=== PATIENT | male | born 1960 | race Caucasian/White ===

== ENCOUNTER 2020-07-25 13:48 | Inpatient (IN) | payer OTHER ==
[~2020-07-25] VITALS: Ht 180.3 cm; Wt 128.0 kg
[2020-07-25 20:34] VITALS: BP 126/70
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
[2020-07-26 12:45] LABS: INR 1.92; PROTIME 20.3 Seconds (9.3-11.4)
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
[2020-07-26 14:34] LABS: HEMATOCRIT 38.3 % (42.0-52.0); HEMOGLOBIN 12.8 gm/dL (14.0-18.0); MCH 29.9 pg (26.0-34.0); MCHC 33.4 g/dL (28.0-37.0); MCV 89.4 fL (80.0-100.0); RBC 4.28 mil/uL (4.50-6.00); RDW 14.4 % (10.5-14.5); WBC 5.2 thou/uL (4.0-11.0)
[2020-07-26 14:42] LABS: CALCIUM 9.6 mg/dL (8.5-10.1); CREATININE 1.5 mg/dL (0.7-1.3); MAGNESIUM 1.9 mg/dL (1.8-2.4); POTASSIUM 4.3 mmol/L (3.5-5.1)
[2020-07-26 14:44] VITALS: BP 133/81
[2020-07-26 19:46] VITALS: BP 133/95
[2020-07-26 20:55] VITALS: BP 133/95
--- NOTE | 2020-07-26 21:00 | NUR ---
PT UP WALKING AROUND WITH WALKER AND SITTING WITH OTHER PEERS AND WANTING TO TALK TO THEM. PT DID TAKE MEDS WHOLE WITH WATER. 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 PT HANDS AND FEET SEEM PUFFY IN NATURE. PT WANTING TO HAVE A SNACK.
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
[2020-07-26] MEDS ORDERED: ALLOPURINOL 10100 M3 PO (22:42)
[2020-07-26] MEDS ORDERED: NORVASC5 MG PO (22:44)
[2020-07-26] MEDS ORDERED: PROTONIX40 M4 PO (22:45)
[2020-07-26] MEDS ORDERED: TOPROL XL25 MG PO (22:45)
[2020-07-26] MEDS ORDERED: JANTOVEN5 MG PO (22:48)
--- NOTE | 2020-07-27 00:01 | NUR ---
PT REFUSED WARFARIN STATED HE HAD IT ALREADY.
--- NOTE | 2020-07-27 01:00 | NUR ---
PT UP OUT OF HIS ROOM AND WANTED MEDICATION. PT WENT BACK TO ROOM. PT USING WALKER FAITHFULLY.
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
--- NOTE | 2020-07-27 01:50 | NUR ---
WENT TO ROOM WITH ANOTHER NURSE LOCO AND ITEMS WAS TAKEN OUT OF HIS ROOM. PT HAD HIS FEET IN THE WHEELCHAIR SPOKES. PT WAS TOLD THAT HE CAN'T BARRACADE THE DOOR. PT WAS OFFERED ICE CREAM WITH LORAZEPAM O.5MG CRUSHED IN IT. PT DID TAKE ICE CREAM AND EAT 50%. PT STATED HE WAS STILL SI AND WANTED TO GET SHOT IN THE BED. PT ALSO ADMITED TO FEELING HOMICIDAL ALSO. HE SAID THAT HE WOULD LIVE FOR HIS SISTER. PT WAS REASSURED THAT HE WAS IN A SAFE PLACE AND HE DIDN'T NEED TO BARRACADE THE DOOR. NOTICED HIS PHONE BOOK WAS TUCKED IN HIS LEFT SOCK, TOOK OUT AND PUT ON WINDOW LEDGE. PT ALSO HAD URINATED IN THE WATER PITCHER. GAVE PT WATER EARLIER AND HE HAD SPILLED IT ON THE BED BY HIS FEET. THIS VICE PRESIDENT PHARMACY CLEANED UP THE FLOOR WHERE IT WAS WET. GAVE WALKER BACK TO PT. BED ALARM IS ACTIVATED. PT DID SAY THANK YOU BEFORE LEAVING THE ROOM.
[2020-07-27 09:30] VITALS: BP 140/91
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
[2020-07-27 15:20] LABS: INR 1.52; PROTIME 16.2 Seconds (9.3-11.4)
[2020-07-27 16:51] VITALS: BP 140/91
--- NOTE | 2020-07-27 17:39 | NUR ---
Assumed pt care at 0700. pt was oriented to self. Assessments completed, vss. pt took meds whole, no difficulty noted. ambulates with a walker. Denies si/hi. denies pain at this time. Refused to take his 9am meds. at 1045 AM meds were administered. SALINE LOCK was inserted at [address] PT TOLERATED WELL. Flushed with NORMAL SALINE 10ML. PT TOLERATED WELL. pt was transported via w/c accompanied by Dr hodgson for CT scan at 1500. AT this time pt is ambulating around the hallway with his walker. WILL continue to monitor pt.
[2020-07-27 19:45] VITALS: BP 83/61
[2020-07-27 20:30] VITALS: BP 83/61
--- NOTE | 2020-07-27 20:37 | NUR ---
PT SITTING OUT IN DINING ROOM WATCHING BASEBALL. PT STATED HE HAS SOME PAIN TO RT SIDE TOWARDS THE BACK. MENTIONED IT COULD BE GAS, PT HAS ACTIVE BOWEL SOUNDS IN THE RUQ, PT DENIES THIS. PT STATED IT FEELS LIKE SOMEONE SQUEEZED HIM THERE ON THE RT SIDE. ADM TYLENOL 325MG 2 TABS PO FOR PAIN TO RT SIDE. PT ALSO TOOK SCHEDUALED MEDICATION, PT LOOKED IN CUP AND SAID DO I TAKE ALL OF THESE, THIS ROUGH RICE TENDER SAID YES. PT TOOK MEDS WITH WATER.
--- NOTE | 2020-07-27 21:00 | NUR ---
GAVE PT A WARM MOIST PACK FOR RT SIDE, PT WANTED IT POSITIONED TOWARDS THE RT MID SIDE REGION.
[2020-07-28 09:56] VITALS: BP 121/76
[2020-07-28 10:34] VITALS: BP 121/76
--- NOTE | 2020-07-28 13:28 | NUR ---
ASSUMED CARE AT 0700 THIS MORNING. PT. COMPLAINING OF PAIN TO HIS RIGHT SIDE. WHILE ASSESSING PT. FOR THIS HE STATED HE HAS NOT HAD ANY BOWEL MOVEMENTS FOR A COUPLE OF DAYS. HE WAS GIVEN TYLENOL FOR THE PAIN. HE STATED IT HELPED SOME. HE WENT TO HIS ROOM AND STATED HE HAD A BOWEL MOVEMENT. HE DENIED THIS DID NOT HELP HIS PAIN IN HIS SIDE. DR. JUAREZ WAS NOTIFIED OF THIS AND TREATMENTS ATTEMPTED ON HIM. STATED HE WOULD COME UP THIS AFTERNOON AND ASSESS HIM. DR. MCCLAIN ALSO NOTIFIED OF THIS INFORMATION. HE OTHERWISE WAS FEELING "OK". HE TOOK HIS MEDICAITONS WITHOUT PROBLEMS NOTED.
[2020-07-28 15:10] LABS: INR 1.43; PROTIME 15.3 Seconds (9.3-11.4)
--- NOTE | 2020-07-28 17:57 | NUR ---
CHEYANNE and Dr. Leal had a family meeting with the Pt's sister/ DPOA, Zoey Pan [phone]. Elvis provide information on the Pt's catscan. Pt dx with normal pressure hydrocephalus. Elvis provided education on the dx and information on treatment. Zoey was informed once Pt's mental health is stable [facility] will attempt to transfer Pt to [facility] for treament. If [facility] denies, Pt will be sent back to the custodial. At that time Dr. Kaur, Pt's PCP, will work on getting Pt into a hospital for treatment. Zoey seemed okay with the information. CHEYANNE will continue to folloe
[2020-07-28 18:20] LABS: HEMOGLOBIN 11.8 gm/dL (14.0-18.0); MCH 29.9 pg (26.0-34.0); MCHC 33.6 g/dL (28.0-37.0); RBC 3.94 mil/uL (4.50-6.00); RDW 14.1 % (10.5-14.5); WBC 4.8 thou/uL (4.0-11.0)
[2020-07-28 18:36] LABS: CALCIUM 9.3 mg/dL (8.5-10.1); CREATININE 1.7 mg/dL (0.7-1.3); POTASSIUM 4.4 mmol/L (3.5-5.1)
[2020-07-28 19:39] VITALS: BP 144/95
[2020-07-28 22:31] VITALS: BP 144/95
--- NOTE | 2020-07-29 01:33 | NUR ---
Assumed care on 07/28/20 @ 1900, seated in the day room, watching TV. Denies SI at this time. Allowed assessment, HRRR, Lungs CTA bilat. Active bowel sounds noted. took his meds whole with water. Retired to bed after medication administration. This nurse helped patient call his family, from the numbers that he had in a telephone book. One number did not have a voice mail set up, and the other had a voice mail, so the patient left a message. Noted to be pleasant, cooperative and invested in family members. retired to bed @ HS, in bed with eyes closed, respirations even and unlabored. Will continue to monitor as per unit protocol for safety and comfort.
[2020-07-29 06:33] LABS: URINE BILIRUBIN NEGATIVE (Negative); URINE BLOOD NEGATIVE (Negative); URINE CLARITY CLEAR; URINE COLOR YELLOW; URINE GLUCOSE-RANDOM* NEGATIVE (Negative); URINE KETONES NEGATIVE (Negative); URINE LEUKOCYTES-REFLEX NEGATIVE (Negative); URINE PROTEIN (DIPSTICK) NEGATIVE (Negative); URINE UROBILINOGEN 0.2 E.U./dl (0.2-1.0)
[2020-07-29 06:34] LABS: URINE NITRITE-REFLEX POSITIVE (Negative)
[2020-07-29 07:05] LABS: BACTERIA-REFLEX 1-9 Few /HPF (None Seen); CASTS None Seen /LPF (None Seen); CRYSTALS None Seen /LPF (None Seen); SQUAMOUS None Seen /LPF (0-3); URINE RBC None Seen /HPF (0-2); URINE WBC-REFLEX None Seen /HPF (0-5)
[2020-07-29 09:08] VITALS: BP 199/139
--- NOTE | 2020-07-29 12:27 | NUR ---
PATIENT UP WHEN ARRIVING ON UNIT. QUIET AND SITTING IN DINING ROOM. BLOOD PRESSURE ELEVATED THIS MORNING AT 199/139 - ADMINISTERED MORNING MEDICATIONS INCLUDING BLOOD PRESSURE MEDS. RETAKEN AND CAME DOWN TO 154/86 - PATIENT GOOD APPETITE. OBSERVED PARTICIPATING IN GROUP PHYSICAL ACTIVITY WELL. DENIES ANY S/I OR H/I - NO AGITATION OR AGGRESSION OR RESISTANCE NOTED THIS MORNING. HAS BEEN CALM.
[2020-07-29 19:42] VITALS: BP 145/88
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
[2020-07-30 05:27] LABS: INR 1.71; PROTIME 18.2 Seconds (9.3-11.4)
[2020-07-30 08:56] VITALS: BP 135/85
--- NOTE | 2020-07-30 12:51 | NUR ---
COMPLIENT WITH ATTENDING SCHEDULED GROUPS THIS AM AND TAKING PO MEDICATIONS WITHOUT RESISTANCE. DENIES COMPLIANTS DURING AM ASSESSMENT -APPEARS HYPERVIGILANT AND GUARDED DURING 1;1 INTERACTION. WHEN OBSERVED IN [facility] NOTED TO SIT AWAY FROM PEERS-MINHIMAL SOCIAL INTERACTION WITH PEERS-DENIES A/V HALLUCINATIONS BUT DOES APPEAR TO BE BE TALKING AND GESTURING TO UNSEEN OTHERS. ORIENTED TO PERSON ONLY. GAIT SLOW AND STEADY WITH USE OF ROLLER WALKER
--- NOTE | 2020-07-30 18:09 | NUR ---
SW sent patient updates to [facility] via fax. SW received a complex fax confirmation.
[2020-07-30 19:14] VITALS: BP 123/77
[2020-07-30 20:20] VITALS: BP 123/77
--- NOTE | 2020-07-31 04:56 | NUR ---
PATIENT HAS BEEN CALM AND COOPERATIVE TONIGHT. HE TOOK HIS MEDS WHOLE WITH WATER. HE WAS LAUGHING AND SMILING TONIGHT HE JOKED WITH THIS NURSE. HE APPEARS TO BE A/0X 2-3. HE USES HIS ROLLING WALKER TO AMBULATE. HAD C/O RIGHT SIDED MUSCLE PAIN IN RIB/UPPER ABDOMINAL QUAD WHICH WAS RELIEVED WITH TYLENOL 650MG GIVEN AT HS. PATIENT HAS BEEN SLEEPING ALL EVENING. DENIES SI/HI/AVH. ROUTINE ROUNDS TO ASSESS SAFETY AND STATUS OF PATIENT.
[2020-07-31 08:56] VITALS: BP 127/82
[2020-07-31 11:47] VITALS: BP 108/67
--- NOTE | 2020-07-31 12:39 | NUR ---
1240 RESUMMED CARE FROM OVERNIGHT THIS AM, PATIENT IN DAY ROOM SITTING QUIET. PATIENT ALERT ORIENTED TO SELF PLACE WAS NOT SURE OF DATE OR YEAR. PATIENT DENIES SI/HI/AH BUT MY HAVE VISUAL HALLUCINATIONS. PATIENT WAS TALKING TO ME AND WAS ASKING ME DID I SEE SOMEONE WHO WAS NOT NEAR US. PATIENT ATE TOOK MEDICATION WITHOUT INCIDENCE. PATIENTS ABDOMEN SOFT BOWEL SOUNDS PRESENT PATIENTS LUNGS CLEAR. I GAVE PATIENT COLACE AND MOM HE DID HAVE A BOWEL MOVEMENT TODAY. PATIENT HAS MOM ORDERED IF HE HAS CONSTIPATION PATIENT IS CALM COOPERATIVE. HE PARTICPATES IN GROUPS BUT LIKES TO GO TO HIS ROOM AFTERWARDS. WILL CONTINUE TO MONITOR PATIENT FOR SAFETY AND BEHAVIORS.
--- NOTE | 2020-07-31 17:40 | NUR ---
Joaquin spoke with Aziza and the BOWEN at [facility]. JOAQUIN informed of the Pt's dx of notmal Pressure Hydrocephalus. JOAQUIN informed them of the plan for Pt to transfer to [facility], however if Pt was not accepted Pt would return to [facility]. JOAQUIN gave an update on Pt's behaviors over the weekend and informed Pt may be ready for discharge this week. JOAQUNI will continue to follow and provide updates to [facility]
[2020-07-31 19:34] VITALS: BP 119/71
[2020-07-31 20:40] VITALS: BP 119/71
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
[2020-08-01 05:51] LABS: CREATININE 1.5 mg/dL (0.7-1.3); MAGNESIUM 1.8 mg/dL (1.8-2.4); POTASSIUM 4.3 mmol/L (3.5-5.1)
[2020-08-01 05:54] LABS: PROTIME 27.6 Seconds (9.3-11.4)
[2020-08-01 05:59] LABS: INR 2.65
[2020-08-01 08:57] VITALS: BP 146/83
--- NOTE | 2020-08-01 12:11 | NUR ---
Followup: continues to eat 100% of meals consistently. Wts are stable at 282 lb over past week. Remains low nutrition risk
--- NOTE | 2020-08-01 13:58 | NUR ---
CALM AND COOPERATIVE WITH REQUESTS FROM STAFF SO FAR THIS SHIFT. ATTENDING SCHEDULED GROUPS WITH FULL LEVEL OF PARTICIPATION. NO NOTED OR REPORTED PSYCHOSIS/A/V HALLUCINATIONS NOTED OR REPORTED. DENIES COMPLAINTS OF PHYSICAL DISCOMFORT. AMBULATING PER SELF WITH USE OF ROLLER WALKER-GAIT IS SLOW BUT STEADY. FULL RANGE AFFECT-INTERACTIVE WITH PEERS/STAFF.
--- NOTE | 2020-08-01 15:42 | NUR ---
CHEYANNE faxed referral to [facility], , for [facility]. @[phone] Nino from the access center called and stated Pt has been declined for hospitla transfer to [facility]
[2020-08-01 19:59] VITALS: BP 134/72
--- NOTE | 2020-08-02 02:37 | NUR ---
ASSESSMENT: PT REMAIN ALERT AND ORIENT TIMES THREE. UP WITH WALKER/STEADY GAIT. WATCHED TELEVISION FOR A SHORT SPAN OF TIME, THEN RETIRED TO BED WITHOUT INCIDENT. TOOK MEDS WHOLE WITHOUT DIFFICULTY. DENIES PAIN, SOB AND SI/HI. VSS, AFEBRILE. POSSIBLE DC TOMORROW, BACK TO [facility]. WILL CONTINUE TO MONITOR.
[2020-08-02] MEDS ORDERED: WARFARIN SODIU2.5 MG PO (08:50)
[2020-08-02] MEDS ORDERED: HALOPERIDOL 5 MG5 MG PO (08:51)
[2020-08-02 08:56] VITALS: BP 130/79
--- NOTE | 2020-08-02 10:28 | NUR ---
PATIENT HAS BEEN UP, AND OUT ON THE UNIT, AMBULATES WITH ASSIST OF ROLLER WALKER, GAIT SLIGHTLY UNSTEADY. PATIENT TOOK ALL MEDICATION WHOLE WITHOUT DIFFICULTY, HE IS EATING MEALS, AND DRINKING FLUID WELL. PATIENT DENIES SUICIDAL/HOMICIDAL IDEATION, HE RATES DEPRESSION 4/10, DENIES ANXIETY, DENIES HAVING PHYSICAL PAIN, AUDITORY-VISUAL HALLUCINATION. PATIENT IS DISCHARGING BACK TO [facility] TODAY, HE IS EXCITED ABOUT DISCHARGING. AFFECT IS BRIGHT, MOOD IS CALM, NO SIGN OF ACUTE DISTRESS NOTED AT THIS TIME, WILL MONITOR FOR SAFETY.
--- NOTE | 2020-08-03 21:00 | D ---
[facility] [address] DISCHARGE SUMMARY Name: WINNIE SNYDER Room #: 526B-B DIS IN M.R.#: [id number] Admission: 07/25/20 Attend Phys: Champ García DO Discharge: 08/02/20 Date of : 62 Report #: [id number] THIS REPORT FOR: cc: FAM - No family physician/PCP FAM - No family physician/PCP Champ García DO ~ DATE OF SERVICE: 08/02/2020 INPATIENT PSYCHIATRIC DISCHARGE SUMMARY ATTENDING PSYCHIATRIST: Champ García DO. SURVEILLANCE INSPECTOR AT THE TIME OF DISCHARGE: Desmond Mane MD DISCHARGE DIAGNOSES: Unspecified psychosis much improved; substance use disorder for alcohol, severe, in remission. Also, suspect longstanding schizophrenia spectrum illness. The patient also suspecting having an evolving major neurocognitive disorder due to normal pressure hydrocephalus. MEDICAL COMORBIDITIES: Chronic atrial fibrillation, Coumadin therapeutic at 2.65. I reduced the warfarin to 6 mg daily. On discharge, hypertension, gout, clinically stable. Abdominal aortic aneurysm, the patient will follow up. Chronic kidney disease. DISCHARGE PLAN: The patient is discharging to [facility]. Psychiatric and medical care to be provided by receiving facility. The patient's PCP there is Dr. Jose Galeano. It should be noted an attempt was made yesterday to get the patient transferred to [facility] for normal pressure hydrocephalus work up and treatment, but that facility declined him. DISCHARGE MEDICATIONS: As follows: Allopurinol 100 mg oral twice daily for gout prevention, amlodipine 10 mg oral daily for hypertension, metoprolol succinate 25 mg oral daily for hypertension and atrial fibrillation, Protonix 40 mg oral daily, warfarin I thought I had changed to 6 mg daily but it is showing 7.5 mg oral daily, haloperidol 10 mg oral twice daily. ACTIVITY: He has an assisted gait, using a rolling walker. Activity level as tolerated. No alcohol, no illicit drugs. DIET: Regular. IMAGING: This admission did show prominent bilateral lateral ventricles out of proportion for cortical atrophy, nonspecific, could represent normal pressure hydrocephalus. The patient does have a magnetic gait. No urinary incontinence. [facility] [address] [place] [address] DISCHARGE SUMMARY Name: WINNIE SNYDER Room #: 526B-B [facility] IN M.R.#: [id number] Admission: 07/25/20 Attend Phys: Champ García DO Discharge: 08/02/20 Date of : 62 Report #: [id number] Urine cultures this admission was negative. REASON FOR ADMISSION: Back on or so july, a 59-year-old black male sent from [facility]. Apparently, he had been threatening staff at halfway, believing that they were stealing money from him, trying to get him naked, threatening to throw a wheelchair at staff and roommate. HOSPITAL COURSE: The patient was admitted to Geriatric Psychiatry Unit. Initially, the patient was very regressed. I can remember him holding the alarm for a wheelchair thinking it would magically protect him. The patient responded pretty quickly within a couple of days to haloperidol. I did a workup on him for dementia, I believe the SLUMS is in the teens. The CT scan as noted was concerning for normal pressure hydrocephalus and the patient did have a magnetic gait. No urinary incontinence. It turns out he did have a DPOA, [place], in [place], spoke with her regarding the normal pressure hydrocephalus concern. She is aware that it will require the outpatient followup. LABORATORY DATA: H and H on 07/28/2020, 11.8 and 35.0, white count 4.8, platelets 293. Most recent INR 2.65 on 08/01/2020. Chemistries; sodium 142, potassium 4.3, chloride 107, bicarbonate 25, anion gap 10, creatinine 1.5, down from high 1.7 on the . Estimated GFR 48, glucose 92, calcium 9.0, magnesium 1.8. Urinalysis was grossly negative, except for nitrites and few bacteria. COVID-19 PCR was negative. I thought I had ordered B12, folate, RPR, but that was not reported, so we will defer to Dr. Galeano outpatient. CONDITION AT DISCHARGE: On discharge, the patient was in good condition, walking around freely with walker. No SI, no HI. PHYSICAL EXAMINATION: VITAL SIGNS: Afebrile, pulse 90, BP 130/79. MUSCULOSKELETAL: Large habitus, obese. mobilizes with walker. MENTAL STATUS EXAMINATION: Attention fair. Concentration limited. Speech soft, normal rate. Thought process is linear and goal oriented. Thought content focused on discharge. No psychomotor agitation. Slight psychomotor retardation. Denied SI or HI. Denied auditory, visual, or tactile hallucinations. Mood and affect congruent and euthymic, happy. Insight limited. Judgment limited. Fund of knowledge below average. PROGNOSIS: For this patient is guarded given age of 59, [facility] medical [facility] [address] [place] [address] DISCHARGE SUMMARY Name: WINNIE SNYDER Room #: 526B-B DIS IN M.R.#: [id number] Admission: 07/25/20 Attend Phys: Champ García DO Discharge: 08/02/20 Date of : 62 Report #: [id number] comorbidities and concerns with the normal pressure hydrocephalus an involving dementia process. <ELECTRONICALLY SIGNED> By: Champ García DO 08/03/20 2100 29 Champ García DO /nt
== END 2020-08-02 13:00 | DRG 885 ==
LOC: SBH
PROVIDERS: Hospitalist; Internal Medicine; Nurse Practitioner Family; ADMIT Psychiatry & Neurology Psychiatry; ATTEND Psychiatry & Neurology Psychiatry
DX: F20.9 Schizophrenia, unspecified (principal); F01.51 Vascular dementia, unspecified severity, with behavioral disturbance; I48.20 Chronic atrial fibrillation, unspecified; R45.851 Suicidal ideations; G91.2 (Idiopathic) normal pressure hydrocephalus; I12.9 Hypertensive chronic kidney disease with stage 1 through stage 4 chronic kidney disease, or unspecified chronic kidney disease; F29 Unspecified psychosis not due to a substance or known physiological condition; G62.9 Polyneuropathy, unspecified; N18.9 Chronic kidney disease, unspecified; M10.9 Gout, unspecified; F32.9 Major depressive disorder, single episode, unspecified; I71.4 Abdominal aortic aneurysm, without rupture; E66.9 Obesity, unspecified; Z68.39 Body mass index [BMI] 39.0-39.9, adult; Z87.891 Personal history of nicotine dependence; Z85.830 Personal history of malignant neoplasm of bone; Z85.46 Personal history of malignant neoplasm of prostate
CPT/HCPCS: 10880

== ENCOUNTER 2020-07-25 16:23 | Emergency (ER) | payer OTHER ==
[~2020-07-25] VITALS: Ht 180.3 cm; Wt 93.0 kg
[2020-07-25 20:12] VITALS: BP 144/84
[2020-07-26] MEDS ORDERED: ALLOPURINOL 10100 M3 PO (22:42)
[2020-07-26] MEDS ORDERED: NORVASC5 MG PO (22:44)
[2020-07-26] MEDS ORDERED: PROTONIX40 M4 PO (22:45)
[2020-07-26] MEDS ORDERED: TOPROL XL25 MG PO (22:45)
[2020-07-26] MEDS ORDERED: JANTOVEN5 MG PO (22:48)
== END 2020-07-25 20:13 | disposition admitted as inpatient to this hospital (09) ==
LOC: ER 16:23
PROVIDERS: Emergency Medicine
DX: R45.851 Suicidal ideations (principal); I10 Essential (primary) hypertension; K21.9 Gastro-esophageal reflux disease without esophagitis; I48.91 Unspecified atrial fibrillation; M10.9 Gout, unspecified; Z20.822 Contact with and (suspected) exposure to COVID-19